=== PATIENT | male | born 1955 | race Caucasian/White ===

== ENCOUNTER → 2018-06-12 | Outpatient (CLI) | payer BC | LOC: COL.RAD 07:26 | DX: K59.00 Constipation, unspecified (principal); R11.2 Nausea with vomiting, unspecified; R68.81 Early satiety; R14.0 Abdominal distension (gaseous) | CPT/HCPCS: A9541 ==

== ENCOUNTER 2018-06-15 13:07 | Day surgery (SDC) | payer BC ==
[~2018-06-15] VITALS: Ht 15.2 cm; Wt 75.1 kg
[2018-06-15 13:30] VITALS: BP 139/90; PULSE 79; TEMP 97.2
[2018-06-15] MEDS ORDERED: PRINIVIL20 MG PO (13:34)
[2018-06-15] MEDS ORDERED: PROTONIX 40MG T40 MG PO (13:35)
[2018-06-15] MEDS ORDERED: NEURONTIN100 MG/CAP PO (13:35)
[2018-06-15] MEDS ORDERED: GLUCOPHAGE500 MG/TAB PO (13:36)
[2018-06-15 15:10] VITALS: BP 107/79; PULSE 74; TEMP 97.2
--- NOTE | 2018-06-15 15:10 | NUR ---
Pt to [facility] 2 via cart from ENDO. Pt awake and alert. Pt ambulates to recliner with stand by assistance. in room. Muffin and coffee given per pt request. Will continue to monitor. Call light within reach.
[2018-06-15 15:25] VITALS: BP 112/84; PULSE 74
--- NOTE | 2018-06-15 15:25 | NUR ---
Pt continues to rest. Denies needs. Call light within reach.
[2018-06-15 15:40] VITALS: BP 115/73; PULSE 77
--- NOTE | 2018-06-15 15:40 | NUR ---
into speak with pt. Pt resting. Denies needs. Call light within reach.
[2018-06-15 15:55] VITALS: BP 115/80; PULSE 80
--- NOTE | 2018-06-15 15:55 | NUR ---
Pt continues to rest. Denies needs. Call light within reach.
--- NOTE | 2018-06-15 16:05 | NUR ---
Discharge instructions reviewed. Pt voices understanding. IV site discontinued with all parts intact. Pt up to dress. Call light within reach.
--- NOTE | 2018-06-15 16:24 | NUR ---
Pt escorted to private car via wheel chair. Pt accompanied home by his ..
== END 2018-06-15 16:24 | disposition home or self-care (01) ==
LOC: SDCO 13:07
DX: D12.0 Benign neoplasm of cecum (principal); D12.8 Benign neoplasm of rectum; R19.7 Diarrhea, unspecified; K59.00 Constipation, unspecified; Z79.84 Long term (current) use of oral hypoglycemic drugs; E78.00 Pure hypercholesterolemia, unspecified; E11.9 Type 2 diabetes mellitus without complications
CPT/HCPCS: J2250; J2405; J3010